=== PATIENT | male | born 1935 | race Caucasian/White ===

== ENCOUNTER → 2016-08-29 | Outpatient (CLI) | payer OTHER | END | disposition home or self-care (01) | LOC: PCVCCLINIC 15:00 | PROVIDERS: ATTEND Internal Medicine | DX: I48.91 Unspecified atrial fibrillation (principal); G47.33 Obstructive sleep apnea (adult) (pediatric); E78.5 Hyperlipidemia, unspecified | CPT/HCPCS: G0463 ==

== ENCOUNTER → 2016-09-03 | Outpatient (CLI) | payer OTHER | END | disposition home or self-care (01) | LOC: PCVCIMAG 12:41 | PROVIDERS: ATTEND Internal Medicine | DX: I48.91 Unspecified atrial fibrillation (principal); E78.00 Pure hypercholesterolemia, unspecified; G47.33 Obstructive sleep apnea (adult) (pediatric) | CPT/HCPCS: 93306 ==

== ENCOUNTER → 2016-12-05 | Outpatient (CLI) | payer OTHER | END | disposition home or self-care (01) | LOC: PCVCCLINIC 14:54 | PROVIDERS: ATTEND Internal Medicine | DX: I48.2 Chronic atrial fibrillation (principal); I71.2 Thoracic aortic aneurysm, without rupture; E78.5 Hyperlipidemia, unspecified; G47.33 Obstructive sleep apnea (adult) (pediatric); Z79.899 Other long term (current) drug therapy; Z87.891 Personal history of nicotine dependence | CPT/HCPCS: 93005; G0463 ==

== ENCOUNTER → 2017-06-06 | Outpatient (CLI) | payer OTHER | END | disposition home or self-care (01) | LOC: PCVCCLINIC 13:20 | PROVIDERS: ATTEND Internal Medicine | DX: I48.2 Chronic atrial fibrillation (principal); I71.2 Thoracic aortic aneurysm, without rupture; E78.2 Mixed hyperlipidemia; G47.33 Obstructive sleep apnea (adult) (pediatric); Z87.891 Personal history of nicotine dependence; Z79.899 Other long term (current) drug therapy | CPT/HCPCS: 93005; G0463 ==

== ENCOUNTER → 2017-12-04 | Outpatient (CLI) | payer OTHER | END | disposition home or self-care (01) | LOC: PCVCCLINIC 11:57 | DX: I48.2 Chronic atrial fibrillation (principal); E78.5 Hyperlipidemia, unspecified; I71.2 Thoracic aortic aneurysm, without rupture; G47.33 Obstructive sleep apnea (adult) (pediatric); Z87.891 Personal history of nicotine dependence; Z88.8 Allergy status to other drugs, medicaments and biological substances | CPT/HCPCS: 80061; 93005; G0463 ==

== ENCOUNTER → 2018-06-04 | Outpatient (CLI) | payer OTHER | END | disposition home or self-care (01) | LOC: PCVCCLINIC 13:19 | PROVIDERS: ATTEND Internal Medicine | DX: I48.91 Unspecified atrial fibrillation (principal); R94.31 Abnormal electrocardiogram [ECG] [EKG]; E78.5 Hyperlipidemia, unspecified; I71.2 Thoracic aortic aneurysm, without rupture; G47.33 Obstructive sleep apnea (adult) (pediatric); Z79.899 Other long term (current) drug therapy; Z87.891 Personal history of nicotine dependence; Z88.2 Allergy status to sulfonamides; Z88.8 Allergy status to other drugs, medicaments and biological substances; Z72.89 Other problems related to lifestyle; Z90.49 Acquired absence of other specified parts of digestive tract | CPT/HCPCS: 36415; 80061; 93005; G0463 ==

== ENCOUNTER → 2018-12-10 | Outpatient (CLI) | payer OTHER ==
--- NOTE | 2018-12-10 11:29 | PCVCIMAG ---
APPROVED REPORT Study performed: 12/10/2018 09:30:31 EXAM: Comprehensive 2D, Doppler, and color-flow Echocardiogram Patient Location: Echo lab Room #: 2Status: routine BSA: 2.18 HR: 73 bpmBP: 124/84 mmHg Rhythm: Atrial Fibrillation Other Information Study Quality: Adequate Risk Factors: Cardiac Risk Factors: TRUONG Indications Atrial Fibrillation Thoracic aortic aneurysm 2D Dimensions IVSd: 8.71 (7-11mm)LVOT Diam: 23.10 (18-24mm) LVDd: 60.10 mm PWd: 7.29 (7-11mm)Ascending Ao: 42.26 (22-36mm) LVDs: 39.22 (25-40mm) Left Atrium: 46.92 (27-40mm) Aortic Root: 33.71 mm LV Single Plane 4CH: 50.19 % LV Single Plane 2CH: 62.97 % Biplane EF: 55.0 % Volumes Left Atrial Volume (Systole) Single Plane 4CH: 102.02 mLSingle Plane 2CH: 77.42 mL Biplane LA Volume: 90.00 mLLA ESV Index: 41.00 mL/m2 Aortic Valve AoV Peak Aj.: 0.77 m/s AO Peak Gr.: 3.06 mmHgLVOT Max P.80 mmHg LVOT Max V: 0.62 m/s VALE Vmax: 3.36 cm2 AI Vmax: 4.14 m/s AI [place]: 2.71 m/s2 AI PHT: 442.61 ms Mitral Valve MV E Max Aj.: 0.83 m/s MV PHT: 32.29 ms MVA (PHT): 6.81 cm2 IVRT: 131.49 ms TDI E/Lateral E': 8.30E/Medial E': 11.86 Medial E' Aj.: 0.07 m/s Lateral E' Aj.: 0.10 m/s Pulmonary Valve PV Peak Aj.: 0.71 m/sPV Peak Gr.: 2.07 mmHg Tricuspid Valve TR Peak Aj.: 2.40 m/s TR Peak Gr.: 22.98 mmHg TV Vmax: 0.68 m/sPA Pressure: 30.00 mmHg Left Ventricle The left ventricle is normal size. There is normal LV segmental wall motion. There is normal left ventricular wall thickness. Left ventricular systolic function is normal. The left ventricular ejection fraction is within the normal range. LVEF is 60-65%. This study is not technically sufficient to allow evaluation of the LV diastolic function due to atrial fibrillation. Right Ventricle The right ventricle is normal size. The right ventricular systolic function is normal. Atria Left atrium is mildly dilated. Right atrium is mildly dilated. Aortic Valve Aortic valve is trileaflet, mild sclerosis. Moderate aortic regurgitation. There is no aortic valvular stenosis. Mitral Valve The mitral valve is normal in structure. Trace to mild mitral regurgitation. No evidence of mitral valve stenosis. Tricuspid Valve The tricuspid valve is normal in structure. Mild tricuspid regurgitation with a PA pressure of 30 mmHg. Pulmonic Valve The pulmonary valve is normal in structure. Trace pulmonic regurgitation. Great Vessels The aortic root is normal in size. 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 Aortic arch is normal in caliber. IVC is normal in size and collapses >50% with inspiration. Pericardium There is no pericardial effusion. There is no pleural effusion. <Conclusion> Left ventricular systolic function is normal. There is normal LV segmental wall motion. LVEF is 60-65%. Both atria are dilated. Aortic valve is trileaflet, mild sclerosis. Moderate aortic regurgitation, no stenosis. The mitral valve is normal in structure. Trace to mild mitral regurgitation. Mild tricuspid regurgitation with a pulmonary artery pressure of 30 mmHg. 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 There is no pericardial effusion.
== END | disposition home or self-care (01) ==
LOC: PCVCIMAG 09:22
PROVIDERS: ATTEND Internal Medicine
DX: I08.3 Combined rheumatic disorders of mitral, aortic and tricuspid valves (principal); I48.2 Chronic atrial fibrillation; E78.5 Hyperlipidemia, unspecified; I71.2 Thoracic aortic aneurysm, without rupture; G47.33 Obstructive sleep apnea (adult) (pediatric)
CPT/HCPCS: 93306